=== PATIENT | male | born 1965 | race Caucasian/White ===

== ENCOUNTER 2017-01-21 11:03 | Emergency (ER) | payer OTHER ==
[2017-01-21] MEDS ORDERED: Sodium Chloride 0.9% 1,000 ML IV ONE (11:05)
[2017-01-21] MEDS ORDERED: Aspirin 81 MG Tab.Chew PO ONE (11:05)
--- NOTE | 2017-01-21 11:06 | EDM.PDOC ---
ED HPI GENERAL MEDICAL PROBLEM - General Stated Complaint: CHEST PAIN Time Seen by Provider: 01/21/17 11:06 Source of Information: Reports: Patient - History of Present Illness INITIAL COMMENTS - FREE TEXT/NARRATIVE: HISTORY AND PHYSICAL: History of present illness: []Patient with recent cardiac catheterization in November, no significant blockage, no stents placed presents with chest pain that lasted for a few minutes and left arm tingling no shortness of breath or diaphoresis associated No fever nausea vomiting chills sweats Review of systems: As per history of present illness and below otherwise all systems reviewed and negative. Past medical history: As per history of present illness and as reviewed below otherwise noncontributory. Surgical history: As per history of present illness and as reviewed below otherwise noncontributory. Social history: No reported history of drug or alcohol abuse. Family history: As per history of present illness and as reviewed below otherwise noncontributory. Physical exam: HEENT: Atraumatic, normocephalic, pupils reactive, negative for conjunctival pallor or scleral icterus, mucous membranes moist, throat clear, neck supple, nontender, trachea midline. Lungs: Clear to auscultation, breath sounds equal bilaterally, chest nontender. Heart: S1S2, regular, negative for clicks, rubs, or JVD. Abdomen: Soft, nondistended, nontender. Negative for masses or hepatosplenomegaly. Negative for costovertebral tenderness. Pelvis: Stable nontender. Genitourinary: Deferred. Rectal: Deferred. Extremities: Atraumatic, negative for cords or calf pain. Neurovascular unremarkable. Neuro: Awake, alert, oriented. Cranial nerves II through XII unremarkable. Cerebellum unremarkable. Motor and sensory unremarkable throughout. Exam nonfocal. Diagnostics: []Lab as below EKG Chest 1. Therapeutics: []Liter normal saline bolus Aspirin 324 mg chewable Lopressor 5 mg IV Patient offered observation admission telemetry and follow enzymes he refused Impression: []Chest pain resolved Definitive disposition and diagnosis as appropriate pending reevaluation and review of above. - Related Data Allergies Allergy/AdvReac Type Severity Reaction Status Date / Time No Known Allergies Allergy Verified 01/21/17 11:26 Home Meds: Home Meds . [Unable to Verify Home Med List] 01/21/17 [History] ED ROS GENERAL - Review of Systems Review Of Systems: ROS reveals no pertinent complaints other than HPI. ED EXAM, GENERAL - Physical Exam Exam: See Below Course - Vital Signs Last Recorded V/S: Last Vital Signs Temp 36.4 C 01/21/17 11:58 Pulse 66 01/21/17 11:58 Resp 20 01/21/17 11:58 BP 147/91 H 01/21/17 11:58 Pulse Ox 98 01/21/17 11:58 - Orders/Labs/Meds Orders: Active Orders 24 hr Category Date Time Status EKG Documentation Completion [RC] STAT Care 01/21/17 11:05 Active Chest 1V Frontal [CR] Stat Exams 01/21/17 11:05 Taken UA W/MICROSCOPIC [URIN] Stat Lab 01/21/17 11:05 Uncollected Labs: Laboratory Tests 01/21/17 01/21/17 01/21/17 Range/Units 11:10 11:10 11:10 WBC 6.52 (4.0-11.0) K/uL RBC 5.08 (4.50-5.90) M/uL Hgb 14.3 (13.0-17.0) g/dL Hct 42.5 (38.0-50.0) % MCV 83.7 (80.0-98.0) fL MCH 28.1 (27.0-32.0) pg MCHC 33.6 (31.0-37.0) g/dL RDW Std Deviation 48.8 (28.0-62.0) fl RDW Coeff of Anais 16 H (11.0-15.0) % Plt Count 181 (150-400) K/uL MPV 9.70 (7.40-12.00) fL Neut % (Auto) 54.0 (48.0-80.0) % Lymph % (Auto) 34.5 (16.0-40.0) % [place] % (Auto) 8.6 (0.0-15.0) % Eos % (Auto) 2.1 (0.0-7.0) % Baso % (Auto) 0.8 (0.0-1.5) % Neut # (Auto) 3.5 (1.4-5.7) K/uL Lymph # (Auto) 2.3 (0.6-2.4) K/uL [place] # (Auto) 0.6 (0.0-0.8) K/uL Eos # (Auto) 0.1 (0.0-0.7) K/uL Baso # (Auto) 0.1 (0.0-0.1) K/uL Nucleated RBC % 0.0 /100WBC Nucleated RBCs # 0 K/uL Sodium 140 (136-146) mmol/L Potassium 4.0 (3.5-5.1) mmol/L Chloride 107 (98-110) mmol/L Carbon Dioxide 22 (21-31) mmol/L BUN 15 (6.0-23.0) mg/dL Creatinine 0.9 (0.6-1.5) mg/dL Est Cr Clr Drug Dosing 110.36 mL/min Estimated GFR (MDRD) > 60.0 ml/min Glucose 93 (60-110) mg/dL Calcium 9.0 (8.8-10.8) mg/dL Total Bilirubin 0.6 (0.1-1.5) mg/dL AST 25 (5-40) IU/L ALT 25 (8-54) IU/L Alkaline Phosphatase 63 (40-150) Troponin I < 0.10 (0.0-0.29) NG/ML Total Protein 7.2 (6.0-8.0) g/dL Albumin 4.3 (3.5-5.0) g/dL Globulin 2.9 (2.0-3.5) g/dL Albumin/Globulin Ratio 1.5 (1.3-2.8) Meds: Medications Discontinued Medications Generic Name Dose Route Start Last Admin Trade Name Freq PRN Reason Stop Dose Admin Aspirin 324 mg 01/21/17 11:05 01/21/17 11:28 Aspirin PO 01/21/17 11:06 324 mg ONETIME ONE Administration Sodium Chloride 1,000 mls @ 999 mls/hr 01/21/17 11:05 01/21/17 11:28 Normal Saline IV 01/21/17 12:05 999 mls/hr STAT ONE Administration Metoprolol Tartrate 5 mg 01/21/17 11:20 01/21/17 11:29 Lopressor IVPUSH 01/21/17 11:21 5 mg NOW STA Administration Departure - Departure Time of Disposition: 12:07 Disposition: Home, Self-Care 01 Condition: Fair Clinical Impression: Chest pain - Discharge Information Additional Instructions: In lieu of not wanting to be admitted for observation Return if symptoms persist or worsen or new concerning symptoms develop Continue home medications as directed Follow-up with primary care in 2 weeks sooner as needed The following information is given to patients seen in the emergency department who are being discharged to home. This information is to outline your options for follow-up care. We provide all patients seen in our emergency department with a follow-up referral. The need for follow-up, as well as the timing and circumstances, are variable depending upon the specifics of your emergency department visit. If you don't have a primary care physician on staff, we will provide you with a referral. We always advise you to contact your personal physician following an emergency department visit to inform them of the circumstance of the visit and for follow-up with them and/or the need for any referrals to a consulting specialist. The emergency department will also refer you to a specialist when appropriate. This referral assures that you have the opportunity for follow-up care with a specialist. All of these measure are taken in an effort to provide you with optimal care, which includes your follow-up. Under all circumstances we always encourage you to contact your private physician who remains a resource for coordinating your care. When calling for follow-up care, please make the office aware that this follow-up is from your recent emergency room visit. If for any reason you are refused follow-up, please contact the [facility] emergency department at and asked to speak to the emergency department charge nurse. - My Orders Last 24 Hours: My Active Orders 01/21/17 11:05 EKG Documentation Completion [RC] STAT Chest 1V Frontal [CR] Stat UA W/MICROSCOPIC [URIN] Stat - Assessment/Plan Last 24 Hours: My Active Orders 01/21/17 11:05 EKG Documentation Completion [RC] STAT Chest 1V Frontal [CR] Stat UA W/MICROSCOPIC [URIN] Stat
[2017-01-21] MEDS ORDERED: Metoprolol Tartrate 5 MG/5 ML SDV IVPUSH STA (11:20)
[2017-01-21 11:47] LABS: CHLORIDE,CL 107 mmol/L (98-110); SODIUM,NA 140 mmol/L (136-146)
[2017-01-21 12:29] VITALS: BP 150/95
--- NOTE | 2017-01-23 14:29 | CR ---
EXAM DATE: 01/21/17 PATIENT'S AGE: 51 Patient: RICHARD BERRY Facility: [place], [place] Site . Site : [id number] Study: XRay Chest [id number]/1/2017 11:49:30 AM Ordering Physician: Doctor Plascencia Final Report: HISTORY: Chest pain. Technique: Portable AP upright chest. Comparison: None. Findings: The heart size, mediastinum, and pulmonary veins are normal. The lungs are free of acute infiltrate. There is no pneumothorax or effusion. Bony structures are unremarkable. Impression: Negative AP chest. Dictated by Bj Thayer MD @ Jan 21 2017 12:05PM (Electronic Signature) Report Signed by Proxy. SOPHY
== END 2017-01-21 12:23 | disposition home or self-care (01) ==
LOC: MW.ED 11:03
DX: R07.9 Chest pain, unspecified (principal)
CPT/HCPCS: 36415; 71010; 80053; 84484; 85025; 93005; 96361; 96374; 99284; A9270; J7040; 99282